=== PATIENT | male | born 2000 | race Caucasian/White ===

== ENCOUNTER 2024-11-14 21:03 | Emergency (ER) | payer SELFPAY ==
[2024-11-14 21:09] VITALS: TEMP 99.4
[2024-11-14] MEDS: ACETAMINOPHEN TAB 500 MG TAB PO STA (21:25)
[2024-11-14] MEDS: IBUPROFEN 800 MG TAB PO STA (21:25)
--- NOTE | 2024-11-14 21:38 | XR ---
EXAMINATION TYPE: XR ankle complete RT DATE OF EXAM: 11/14/2024 9:33 PM COMPARISON: None CLINICAL INDICATION: Male, 24 years old with history of Fall; PHH, pain TECHNIQUE: XR ankle complete RT; frontal, lateral and oblique projections. FINDINGS: There is no evidence of acute osseous pathology. No evidence of subluxation or dislocation. Kager's fat pad is intact. Mild soft tissue swelling around the ankle. No radiopaque foreign bodies are ident ified. IMPRESSION: 1. No evidence of acute fracture. 2. Subcutaneous swelling around the ankle likely secondary to underlying soft tissue injury. [facility], , 11/14/2024 9:36 PM
--- NOTE | 2024-11-14 21:49 | ED ---
Lower Extremity Injury HPI - General Chief Complaint: Extremity Injury, Lower Stated Complaint: Rt Ankle Pain Time Seen by Provider: 11/14/24 21:10 Source: patient, RN notes reviewed Mode of arrival: wheelchair Limitations: no limitations - History of Present Illness Initial Comments: This is a 24-year-old male who presents to the emergency department for right ankle pain. States that he jumped off of his porch and landed on his right ankle. He has since had increasing pain and swelling to the outside of his ankle. Denies hitting his head or sustaining any other injuries. MD Complaint: ankle injury - Related Data Allergies Allergy/AdvReac Type Severity Reaction Status Date / Time No Known Allergies Allergy Verified 11/14/24 21:09 Review of Systems ROS Statement: Those systems with pertinent positive or pertinent negative responses have been documented in the HPI. ROS Other: All systems not noted in ROS Statement are negative. Past Medical History Past Medical History: No Reported History History of Any Multi-Drug Resistant Organisms: MRSA Date of last positivie culture/infection: 07/26/23 MDRO Source:: Right Hand Past Surgical History: No Surgical Hx Reported Past Psychological History: No Psychological Hx Reported Smoking Status: Never smoker Past Alcohol Use History: None Reported Past Drug Use History: None Reported General Exam Limitations: no limitations General appearance: alert, in no apparent distress Head exam: Present: atraumatic, normocephalic, normal inspection Respiratory exam: Present: normal lung sounds bilaterally. Absent: respiratory distress, wheezes, rales, rhonchi, stridor Cardiovascular Exam: Present: regular rate, normal rhythm Extremities exam: Present: other (Tenderness and swelling to the right lateral malleolus. Full range of motion. 2+ DP and PT pulses) Neurological exam: Present: alert, oriented X3, CN II-XII intact Psychiatric exam: Present: normal affect, normal mood Skin exam: Present: warm, dry, intact, normal color. Absent: rash Course Vital Signs 11/14/24 11/14/24 21:07 22:11 Temperature 99.4 F Pulse Rate 90 89 Respiratory 18 17 Rate Blood Pressure 132/77 128/80 O2 Sat by Pulse 100 99 Oximetry Medical Decision Making - Medical Decision Making This is a 24-year-old male who presents to the emergency department for a right ankle injury. Was pt. sent in by a medical professional or institution? @ -No Did you speak to anyone other than the patient for history? @ -No Did you review nursing and triage notes? @ -Yes, and I agree, it is accurate with regards to the patient's symptoms. Were old charts reviewed? @ -No Differential Diagnosis? @ -Differential Musculoskeletal Muscular strain, contusion, ligament sprain, fracture, arthritis, septic arthritis, bursitis, cellulitis, muscle spasm, nerve compression, DVT, arterial occlusion, herpes zoster, electrolyte abnormality, tumor.... This is not meant to be in all inclusive list EKG interpreted by me (3pts min.)? @ -Not obtained X-rays interpreted by me (1pt min.)? @ -X-ray of the right ankle obtained. My interpretation identifies no acute fractures. CT interpreted by me (1pt min.)? @ -Not obtained U/S interpreted by me (1pt. min.)? @ -Not obtained What testing was considered but not performed? (CT, X-rays, U/S, labs)? Why? @ -None What meds were considered but not given? Why? @ -None Did you discuss the management of the patient with other professionals? @ -No Did you reconcile home meds? @ -No Was smoking cessation discussed for >3mins.? @ -No Was critical care preformed (if so, how long)? @ -No Were there social determinants of health that impacted care today? How? (Homelessness, low income, unemployed, alcoholism, drug addiction, transportation, low edu. Level, literacy, decrease access to med. care, custodial, rehab)? @ -No Was there de-escalation of care discussed even if they declined? (Discuss DNR or withdrawal of care, Hospice)? @ -No What co-morbidities impacted this encounter? (DM, HTN, Smoking, COPD, CAD, Cancer, CVA, Hep., AIDS, mental health diagnosis, sleep apnea, morbid obesity)? @ -None Was patient admitted / discharged? @ -Discharged. X-ray of the right ankle obtained revealing soft tissue swelling without any acute fractures. Ibuprofen and Tylenol administered for pain relief. Symptoms likely related to an ankle sprain. However, advised that sometimes fractures are not easily identifiable on initial imaging and if his symptoms persist after 7 to 10 days he may need repeat x-rays. Velcro stirrup splint applied and he was given crutches. Advised he continue with ibuprofen and Tylenol as needed for pain relief as well as ice and elevation. Patient discharged home in stable condition. Case discussed with ED attending Dr. Gabriela ritchie. Return precautions reviewed in depth, the patient is instructed to return to the emergency department with any new, worsening, or concerning symptoms. Patient verbalized understanding. Undiagnosed new problem with uncertain prognosis? @ -None Drug Therapy requiring intensive monitoring for toxicity (Heparin, Nitro, Insulin, Cardizem)? @ -None Were any procedures done? @ -None Diagnosis/symptom? @ -Right ankle sprain Acute, or Chronic, or Acute on Chronic? @ -Acute Uncomplicated (without systemic symptoms) or Complicated (systemic symptoms)? @ -Uncomplicated Side effects of treatment? @ -None Exacerbation, Progression, or Severe Exacerbation] @ -Not applicable Poses a threat to life or bodily function? @ -No - Radiology Data Radiology results: report reviewed, image reviewed Disposition Clinical Impression: Right ankle sprain Disposition: HOME SELF-CARE Instructions (If sedation given, give patient instructions): Ankle Sprain (ED) Additional Instructions: Return to the emergency department with any new, worsening, or concerning symptoms. Alternate with ibuprofen and Tylenol as needed for pain relief. Apply ice and elevate the ankle. If you continue to have pain, swelling, and d ifficulty ambulating after 7 to 10 days, you may need repeat x-rays. You can return here to have them done, follow-up with your primary care provider, or orthopedics as listed below. Is patient prescribed a controlled substance at d/c from ED?: No Referrals: Tor Beauchamp DO [Primary Care Provider] - 1-2 days Simeon Ann DO [Doctor of Osteopathic Medicine] - 1-2 days Time of Disposition: 22:01
[2024-11-14] MEDS: ACET/COD 300 MG/30 MG STARTER PACK 6 TAB BTL PO STA (22:07)
[2024-11-14 22:28] VITALS: BP 128/80; PULSE 89; RESP 17
== END 2024-11-14 22:12 | disposition home or self-care (01) ==
LOC: EC 21:03
DX: S93.401A Sprain of unspecified ligament of right ankle, initial encounter (principal); Y30.XXXA Falling, jumping or pushed from a high place, undetermined intent, initial encounter
CPT/HCPCS: 99283

== ENCOUNTER 2024-11-22 17:21 | Emergency (ER) | payer OTHER ==
[2024-11-22 17:27] VITALS: BP 134/74; PULSE 85; RESP 17; TEMP 98.4
--- NOTE | 2024-11-22 17:36 | ED ---
General Adult HPI - General Chief complaint: Extremity Injury, Lower Stated complaint: R foot injury Time Seen by Provider: 11/22/24 17:27 Source: patient, RN notes reviewed Mode of arrival: ambulatory Limitations: no limitations - History of Present Illness Initial comments: 24-year-old male with no reported medical conditions [facility] for reevaluation of right ankle injury that occurred a week ago. Patient states that he fell off last off of his porch a week ago causing pain to the lateral right ankle. Patient states that the initial injury x-rays were ordered however unremarkable due to significant amount of swelling. He states that over the last week swelling has decreased however still has mild tenderness to the lateral ankle. Patient has been wearing a walking boot that is one of his friends from a previous injury. He denies paresthesias loss range of motion. Took Motrin earlier today for pain. - Related Data Allergies Allergy/AdvReac Type Severity Reaction Status Date / Time No Known Allergies Allergy Verified 11/22/24 17:27 Review of Systems ROS Statement: Those systems with pertinent positive or pertinent negative responses have been documented in the HPI. ROS Other: All systems not noted in ROS Statement are negative. Past Medical History Past Medical History: No Reported History History of Any Multi-Drug Resistant Organisms: MRSA Date of last positivie culture/infection: 07/26/23 MDRO Source:: Right Hand Past Surgical History: No Surgical Hx Reported Past Psychological History: No Psychological Hx Reported Smoking Status: Never smoker Past Alcohol Use History: None Reported Past Drug Use History: None Reported General Exam Limitations: no limitations General appearance: alert, in no apparent distress Neck exam: Present: normal inspection. Absent: tenderness, meningismus, lymphadenopathy Respiratory exam: Present: normal lung sounds bilaterally. Absent: respiratory distress, wheezes, rales, rhonchi, stridor Cardiovascular Exam: Present: regular rate, normal rhythm, normal heart sounds. Absent: systolic murmur, diastolic murmur, rubs, gallop, clicks GI/Abdominal exam: Present: soft, normal bowel sounds. Absent: distended, tenderness, guarding, rebound, rigid Right Ankle exam: Present: full ROM, tenderness, swelling. Absent: ecchymosis, deformity, crepitus Neurovascular tendon exam: Present: no vascular compromise Back exam: Present: normal inspection Course Vital Signs 11/22/24 17:23 Temperature 98.4 F Pulse Rate 85 Respiratory 17 Rate Blood Pressure 134/74 O2 Sat by Pulse 98 Oximetry Medical Decision Making - Medical Decision Making Was pt. sent in by a medical professional or institution (, [facility], HOUSING ASSISTANT, urgent care, hospital, or assisted...) When possible be specific @ -No Did you speak to anyone other than the patient for history (EMS, parent, family, police, friend...)? What history was obtained from this source @ -No Did you review nursing and triage notes (agree or disagree)? Why? @ -I reviewed and agree with nursing and triage notes Were old charts reviewed (outside hosp., previous admission, EMS record, old EKG, old radiological studies, urgent care reports/EKG's, assisted records)? Report findings @ -No old charts were reviewed Differential Diagnosis (chest pain, altered mental status, abdominal pain women, abdominal pain men, vaginal bleeding, weakness, fever, dyspnea, syncope, headache, dizziness, GI bleed, back pain, seizure, CVA, palpatations, mental health, musculoskeletal)? @ -Differential Musculoskeletal Muscular strain, contusion, ligament sprain, fracture, arthritis, septic arthritis, bursitis, cellulitis, muscle spasm, nerve compression, DVT, arterial occlusion, herpes zoster, electrolyte abnormality, tumor.... This is not meant to be in all inclusive list EKG interpreted by me (3pts min.). @ -None X-rays interpreted by me (1pt min.). @ -X-ray of the right ankle no acute fracture dislocation, mild soft tissue swelling CT interpreted by me (1pt min.). @ -None done U/S interpreted by me (1pt. min.). @ -None done What testing was considered but not performed or refused? (CT, X-rays, U/S, labs)? Why? @ -None What meds were considered but not given or refused? Why? @ -None Did you discuss the management of the patient with other professionals (professionals i.e. [facility]ITTNEY Walters, HOUSING ASSISTANT, lab, RT, psych nurse, adoption social worker, diesel truck driver, teacher, chief diversity officer, case sealer)? Give summary @ -No Was smoking cessation discussed for >3mins.? @ -No Was critical care preformed (if so, how long)? @ -No Were there social determinants of health that impacted care today? How? (Homelessness, low income, unemployed, alcoholism, drug addiction, transportation, low edu. Level, literacy, decrease access to med. care, residential, rehab)? @ -No Was there de-escalation of care discussed even if they declined (Discuss DNR or withdrawal of care, Hospice)? DNR status @ -No What co-morbidities impacted this encounter? (DM, HTN, Smoking, COPD, CAD, Cancer, CVA, ARF, Chemo, Hep., AIDS, mental health diagnosis, sleep apnea, morbid obesity)? @ -None Was patient admitted / discharged? Hospital course, mention meds given and route, prescriptions, significant lab abnormalities, going to OR and other pertinent info. @ -Discharge. 24-year-old male presents emergency department complaints of persistent right ankle pain after injury that occurred last week. There is mild lateral malleolus swelling with no ecchymosis. Neurovascularly intact of the right lower extremity. Patient was offered pain medication was declined. X-ray imaging is negative. Patient is informed of supportive treatment for ankle sprain. Case discussed with Dr. jolley Undiagnosed new problem with uncertain prognosis? @ -No Drug Therapy requiring intensive monitoring for toxicity (Heparin, Nitro, Insulin, Cardizem)? @ -No Were any procedures done? @ -No Diagnosis/symptom? @ -ankle sprain Acute, or Chronic, or Acute on Chronic? @ -acute Uncomplicated (without systemic symptoms) or Complicated (systemic symptoms)? @ -uncomplicated Side effects of treatment? @ -No Exacerbation, Progression, or Severe Exacerbation? @ -No Poses a threat to life or bodily function? How? (Chest pain, [place], [place], pneumonia, PE, COPD, DKA, ARF, appy, cholecystitis, CVA, Diverticulitis, Homicidal, Suicidal, threat to staff... and all critical care pts) @ -No Disposition Clinical Impression: Right ankle sprain Disposition: HOME SELF-CARE Condition: Stable Instructions (If sedation given, give patient instructions): Ankle Sprain (ED) Additional Instructions: Please return to the Emergency Department if symptoms worsen or any other concerns. Is patient prescribed a controlled substance at d/c from ED?: No Referrals: Tor Beauchamp DO [Primary Care Provider] - 1-2 days Time of Disposition: 17:56
--- NOTE | 2024-11-22 17:47 | XR ---
EXAMINATION TYPE: XR ankle complete RT DATE OF EXAM: 11/22/2024 COMPARISON: Right ankle radiograph 11/14/2024 HISTORY: Pain TECHNIQUE: Frontal, lateral and oblique images of the right ankle are obtained. FINDINGS: There is no acute fracture/dislocation evident. No periosteal reaction. The joint spaces appear within normal limits. Mild soft tissue swelling of the ankle. IMPRESSION: 1. No acute fracture or dislocation. 2. Mild soft tissue swelling ankle. [facility], , 11/22/2024 5:44 PM
== END 2024-11-22 18:20 | disposition home or self-care (01) ==
LOC: EC 17:21
DX: S93.401A Sprain of unspecified ligament of right ankle, initial encounter (principal); W18.30XA Fall on same level, unspecified, initial encounter
CPT/HCPCS: 99283